=== PATIENT | female | born 1960 | race Caucasian/White ===

== ENCOUNTER 2023-10-30 16:55 | Emergency (ER) | payer BC ==
[~2023-10-30] VITALS: Ht 182.9 cm; Wt 81.8 kg
[2023-10-30 16:59] VITALS: TEMP 97.6
[2023-10-30] MEDS ORDERED: NS 1,000 ML IV ONE (17:30)
[2023-10-30] MEDS ORDERED: NS 60 ML IV SCH (17:41)
[2023-10-30] MEDS ORDERED: Iohexol 300 - 100 ML VIAL IV ONE (17:41)
[2023-10-30 18:09] LABS: BASO # 0.1 K/mm3 (0.0-0.2); EOS # 0.1 K/mm3 (0.0-0.7); EOS % 1.5 % (0.0-4.0); GRAN # 3.2 K/mm3 (1.4-6.5); GRAN % 60.5 % (42.2-75.2); HEMOGLOBIN 12.4 g/dl (12.5-16.0); LYMPH # 1.6 K/mm3 (1.2-3.4); LYMPH % 30.1 % (20.0-51.0); MEAN CELL VOLUME 96 fl (80.0-100.0); MEAN CORPUSCULAR HEMOGLOBIN 32 pg (27-31); MEAN CORPUSCULAR HGB CONC 34 g/dl (33.0-37.0); MEAN PLATELET VOLUME 10.9 fl (7.4-10.4); MONO # 0.4 K/mm3 (0.1-0.6); MONO % 6.7 % (1.7-9.3); PLATELET COUNT 203 K/mm3 (130-400); RED BLOOD COUNT 3.83 M/mm3 (4.10-5.30); REDCELL DISTRIBUTION WIDTH-CV 12.1 % (11.5-14.5)
[2023-10-30 18:13] LABS: HEMATOCRIT 36.9 % (37.0-47.0)
[2023-10-30 18:28] LABS: ALBUMIN 3.5 gm/dL (3.4-4.8); BILIRUBIN,TOTAL 0.3 mg/dL (0.2-1.2); CREATININE, serum 0.66 mg/dL (0.57-1.11); POTASSIUM 3.5 mmol/L (3.5-4.5); TOTAL PROTEIN 6.1 gm/dL (6.2-8.1)
[2023-10-30] MEDS ORDERED: NS 1,000 ML IV SCH (19:00)
[2023-10-30] MEDS ORDERED: Clopidogrel 75 MG TAB PO ONE (19:15)
[2023-10-30] MEDS ORDERED: PLAVIX 75MG TAB75 MG PO (19:15)
[2023-10-30 19:29] VITALS: BP 169/94; PULSE 67
[2023-10-30 20:03] LABS: INR 1.1 (0.8-3.0); PROTHROMBIN TIME 12.4 SECONDS (9.7-12.8)
[2023-10-30 22:20] LABS: MAGNESIUM 1.9 mg/dL (1.6-2.6); PHOSPHOROUS 2.8 mg/dL (2.3-4.7)
== END 2023-10-30 19:29 | disposition left against medical advice (07) ==
LOC: COL.ER 16:55
PROVIDERS: Nurse Practitioner Family; Personal Emergency Response Attendant
DX: G45.9 Transient cerebral ischemic attack, unspecified (principal); F17.200 Nicotine dependence, unspecified, uncomplicated
CPT/HCPCS: J7030; Q9967